=== PATIENT | male | born 2000 ===

== ENCOUNTER → 2020-01-21 08:48 | Outpatient (CLI) | payer OTHER, SELFPAY ==
[2020-01-22 16:55] LABS: COVID19 Sendout Not Detected (Not Detected)
== END ==
PROVIDERS: Visit Provider Physician Assistant
DX: Z11.59 Encounter for screening for other viral diseases (principal)
CPT/HCPCS: 87635

== ENCOUNTER → 2021-05-19 14:37 | Outpatient (CLI) | payer OTHER, SELFPAY ==
[2021-05-19 14:59] LABS: COVID19 -Nasal RAPID POSITIVE (Negative)
== END ==
PROVIDERS: Referring Provider Nurse Practitioner Family; Visit Provider Nurse Practitioner Family
DX: U07.1 COVID-19 (principal); Z20.822 Contact with and (suspected) exposure to COVID-19
CPT/HCPCS: 87635